=== PATIENT | male | born 1960 | race Caucasian/White ===

== ENCOUNTER 2023-09-19 16:25 | Inpatient (IN) | payer OTHER ==
[2023-09-19 16:59] VITALS: BMI 43.5
[2023-09-19] MEDS ORDERED: IBUPROFEN 400 MG TABLET (FP) PO PRN (17:44)
[2023-09-19] MEDS ORDERED: ONDANSETRON *ODT* 4 MG TABLET SL PRN (17:44)
[2023-09-19] MEDS ORDERED: BISMUTH SUBSALICYLATE 524 MG/30 ML PO PRN (17:44)
[2023-09-19] MEDS ORDERED: DICYCLOMINE HCL 10 MG CAPSULE PO PRN (17:44)
[2023-09-19] MEDS ORDERED: LOPERAMIDE HCL 2 MG CAPSULE PO PRN (17:44)
[2023-09-19] MEDS ORDERED: NALOXONE HCL 0.4 MG/ML VIAL IM PRN (17:44)
[2023-09-19] MEDS ORDERED: MAG HYDROX/AL HYDROX/SIMETH 30 ML UNIT-DOSE CUP PO PRN (17:44)
[2023-09-19] MEDS ORDERED: POLYETHYLENE GLYCOL (HEALTHYLAX) 3350 17 GM PACKET PO PRN (17:44)
[2023-09-19] MEDS ORDERED: MAGNESIUM HYDROX 2400MG/30ML ORAL SUSPENSION 30 ML CUP PO PRN (17:44)
[2023-09-19] MEDS ORDERED: NALOXONE HCL (KLOXXADO) 8 MG SPRAY NS PRN (17:44)
[2023-09-19] MEDS ORDERED: diazePAM 5 MG TABLET ONE (18:04)
[2023-09-19] MEDS: diazePAM 5 MG TABLET PO ONE (18:07)
[2023-09-19] MEDS: PRENATAL VITAMINS W/ FOLIC ACID TABLET (FP) PO SCH (18:44)
[2023-09-19] MEDS: MELATONIN 5 MG TABLETS PO SCH (22:41)
[2023-09-19] MEDS: THIAMINE 100 MG TABLET PO SCH (22:41)
[2023-09-19] MEDS: diazePAM 5 MG TABLET PO SCH (22:42)
[2023-09-20] MEDS: ACETAMINOPHEN 325 MG TABLET (FP) PO PRN (03:50)
[2023-09-20] MEDS: BENZONATATE 200 MG CAPSULE PO PRN (06:25)
[2023-09-20] MEDS: IBUPROFEN 600 MG TABLET (FP) PO PRN (08:55)
[2023-09-20] MEDS ORDERED: methaDONE HCL 10 MG TABLET PO ONE ×2 (09:01→09:43)
[2023-09-20] MEDS: NICOTINE 14 MG/24 HOURS TOPICAL PATCH TD SCH (09:45)
[2023-09-20] MEDS: methaDONE 80 MG, methaDONE 10 MG PO ONE (09:48)
[2023-09-20] MEDS: guaiFENesin 600 MG TABLET.ER (FP) PO PRN (10:36)
[2023-09-20] MEDS: methaDONE 80 MG, methaDONE 20 MG PO ONE (10:50)
[2023-09-20 12:21] LABS: MCH 25.9 pg (25.7-33.7); MCHC 32.4 g/dl (32.0-35.9); MEAN PLT VOLUME 7.6 fl (7.5-11.1); PLATELET COUNT 271 10^3/uL (134-434); RBC 4.25 M/mm3 (4.00-5.60); RDW 16.2 % (11.9-15.9); WHITE BLOOD COUNT 7.7 K/mm3 (4.0-10.0)
[2023-09-20 12:52] LABS: CHLORIDE 101 mmol/L (98-107); POTASSIUM 4.6 mmol/L (3.5-5.1); SODIUM 137 mmol/L (136-145)
[2023-09-20 13:07] LABS: ALBUMIN 2.9 g/dl (3.4-5.0); ANION GAP 5 mmol/L (4-13); BLOOD UREA NITROGEN 19.7 mg/dL (7-18); CO2 31 mmol/L (21-32); GLUCOSE,RANDOM 121 mg/dL (74-106)
[2023-09-20 13:10] LABS: CREATININE 0.9 mg/dL (0.55-1.3); SGOT/AST 15 U/L (15-37); SGPT/ALT 18 U/L (13-61)
[2023-09-20 13:12] LABS: BILIRUBIN,TOTAL 0.2 mg/dL (0.2-1)
[2023-09-20 13:13] LABS: ALK PHOS 122 U/L (45-117)
[2023-09-20 14:00] LABS: HIV INTERPRETATION NEGATIVE (NEGATIVE)
[2023-09-20] MEDS: NICOTINE POLACRILEX 2 MG GUM BUC PRN (14:11)
[2023-09-20] MEDS: hydrOXYzine PAMOATE 25 MG CAPSULE (FP) PO PRN (15:57)
[2023-09-20] MEDS: METHOCARBAMOL 500 MG TABLET PO PRN (22:22)
[2023-09-21] MEDS: BENZOCAINE/MENTHOL (CHLORASEPTIC ) LOZENGE MM PRN (04:55)
[2023-09-21] MEDS: diazePAM 5 MG TABLET PO SCH (05:08)
[2023-09-21] MEDS ORDERED: methaDONE HCL 10 MG TABLET PO SCH (06:00)
[2023-09-21] MEDS ORDERED: methaDONE 80 MG, methaDONE 10 MG PO SCH (06:00)
[2023-09-21] MEDS ORDERED: methaDONE HCL 10 MG TABLET PO ONE ×2 (06:00)
[2023-09-21] MEDS: methaDONE 80 MG, methaDONE 20 MG PO ONE (10:00)
[2023-09-21] MEDS: diazePAM 5 MG TABLET PO PRN (17:21)
[2023-09-22] MEDS: diazePAM 5 MG TABLET PO SCH (05:07)
[2023-09-22] MEDS ORDERED: methaDONE HCL 10 MG TABLET PO ONE (06:00)
[2023-09-22] MEDS ORDERED: methaDONE HCL 40 MG DISPERSABLE TABLET PO ONE (10:00)
[2023-09-22] MEDS: amLODIPine BESYLATE 5 MG TABLET (FP) PO SCH (10:38)
[2023-09-23] MEDS: diazePAM 5 MG TABLET PO ONE (05:27)
[2023-09-23] MEDS ORDERED: methaDONE HCL 10 MG TABLET PO ONE (06:00)
[2023-09-23] MEDS: methaDONE HCL 40 MG DISPERSABLE TABLET PO ONE (09:28)
[2023-09-24] MEDS ORDERED: methaDONE HCL 10 MG TABLET PO ONE ×2 (06:00)
[2023-09-24 09:36] VITALS: BP 161/68; PULSE 84; RESP 18; TEMP 97
[2023-09-24] MEDS: ALBUTEROL SO4 HFA INHALER IH PRN (13:45)
[2023-09-25] MEDS ORDERED: methaDONE HCL 10 MG TABLET PO ONE ×2 (06:00)
[2023-09-26] MEDS ORDERED: methaDONE HCL 10 MG TABLET PO ONE ×2 (06:00)
[2023-09-26] MEDS ORDERED: methaDONE HCL 40 MG DISPERSABLE TABLET PO SCH (10:00)
[2023-09-27] MEDS ORDERED: methaDONE HCL 40 MG DISPERSABLE TABLET PO SCH (06:00)
== END 2023-09-24 14:12 | disposition other institution (70) | DRG 897 ==
LOC: YASAS 16:25 → Y6N 17:48
PROVIDERS: ADMIT Allergy & Immunology; ATTEND Surgery
PROC: HZ2ZZZZ Detoxification Services for Substance Abuse Treatment (ICD-10-PCS; principal; 2023-09-19)
DX: F10.230 Alcohol dependence with withdrawal, uncomplicated (principal); F14.20 Cocaine dependence, uncomplicated; F11.20 Opioid dependence, uncomplicated; F19.282 Other psychoactive substance dependence with psychoactive substance-induced sleep disorder; Z68.41 Body mass index [BMI] 40.0-44.9, adult; F13.230 Sedative, hypnotic or anxiolytic dependence with withdrawal, uncomplicated; F17.210 Nicotine dependence, cigarettes, uncomplicated; I10 Essential (primary) hypertension; L97.519 Non-pressure chronic ulcer of other part of right foot with unspecified severity; E66.01 Morbid (severe) obesity due to excess calories; Z99.89 Dependence on other enabling machines and devices; Z62.810 Personal history of physical and sexual abuse in childhood
CPT/HCPCS: 36415; 80053; 80305; 80307; 82140; 82962; 85027; 86780; 86803; 87389; 87811; 93005; 93010

== ENCOUNTER 2023-09-24 14:19 | Inpatient (IN) | payer OTHER ==
[~2023-09-24 14:19] MED LIST: IBUPROFEN 400 MG TABLET (FP) PO PRN; LOPERAMIDE HCL 2 MG CAPSULE PO PRN; MAG HYDROX/AL HYDROX/SIMETH 30 ML UNIT-DOSE CUP PO PRN; MAGNESIUM HYDROX 2400MG/30ML ORAL SUSPENSION 30 ML CUP PO PRN; NALOXONE HCL (KLOXXADO) 8 MG SPRAY NS PRN; NALOXONE HCL 0.4 MG/ML VIAL IM PRN; NICOTINE 14 MG/24 HOURS TOPICAL PATCH TD PRN; NICOTINE 7 MG/24 HOURS TOPICAL PATCH TD PRN; POLYETHYLENE GLYCOL (HEALTHYLAX) 3350 17 GM PACKET PO PRN; hydrOXYzine PAMOATE 25 MG CAPSULE (FP) PO PRN
[2023-09-24] MEDS: ACAMPROSATE CALCIUM 333 MG TABLET.DR PO SCH (14:57)
[2023-09-24] MEDS: AMOX TR/POT CLAV 500MG/125MG TABLETS (FP) PO SCH (17:40)
[2023-09-24] MEDS: BENZOCAINE/MENTHOL (CHLORASEPTIC ) LOZENGE MM PRN (19:18)
[2023-09-24] MEDS: NICOTINE POLACRILEX 2 MG GUM BUC PRN (19:18)
[2023-09-24] MEDS: MELATONIN 5 MG TABLETS PO SCH (21:33)
[2023-09-24] MEDS: THIAMINE 100 MG TABLET PO SCH (21:33)
[2023-09-25] MEDS: BENZONATATE 200 MG CAPSULE PO PRN (01:37)
[2023-09-25] MEDS ORDERED: methaDONE HCL 10 MG TABLET PO SCH (06:00)
[2023-09-25] MEDS: INSULIN ASPART SLIDING SCALE (NOVOLOG) 1 VIAL SQ SCH (06:36)
[2023-09-25] MEDS: amLODIPine BESYLATE 5 MG TABLET (FP) PO SCH ×2 (09:02)
[2023-09-25] MEDS: PRENATAL VITAMINS W/ FOLIC ACID TABLET (FP) PO SCH (09:02)
[2023-09-25 12:50] LABS: HIV INTERPRETATION NEGATIVE (NEGATIVE)
[2023-09-25] MEDS: guaiFENesin 600 MG TABLET.ER (FP) PO PRN (13:39)
[2023-09-26] MEDS: ALBUTEROL SO4 HFA INHALER IH PRN (09:13)
[2023-09-26] MEDS ORDERED: methaDONE HCL 40 MG DISPERSABLE TABLET PO SCH (10:32)
[2023-09-26] MEDS ORDERED: P-EPHED 60MG/TRIPROLIDI 2.5MG TABLET PO PRN (10:41)
[2023-09-26] MEDS: ERYTHROMYCIN BASE 250 MG TAB PO ONE (11:32)
[2023-09-27] MEDS: ACETAMINOPHEN 325 MG TABLET (FP) PO PRN (03:36)
[2023-09-27] MEDS: methaDONE 80 MG, methaDONE 20 MG PO SCH (05:56)
[2023-09-27] MEDS: AZITHROMYCIN 250 MG TABLET PO SCH (10:12)
[2023-09-27] MEDS ORDERED: guaiFENesin 600 MG TABLET.ER (FP) PO PRN (11:01)
[2023-09-27] MEDS: IBUPROFEN 600 MG TABLET (FP) PO PRN (23:34)
[2023-09-28 10:40] VITALS: RESP 18
[2023-09-29 06:52] VITALS: BP 142/86; PULSE 73; TEMP 97.1
== END 2023-09-29 09:00 | disposition home or self-care (01) | DRG 895 ==
LOC: YASAS 14:19 → Y3W 14:21
PROVIDERS: ADMIT Allergy & Immunology; ATTEND Psychiatry & Neurology Pain Medicine
PROC: HZ42ZZZ Group Counseling for Substance Abuse Treatment, Cognitive-Behavioral (ICD-10-PCS; principal; 2023-09-24)
DX: F10.20 Alcohol dependence, uncomplicated (principal); F14.20 Cocaine dependence, uncomplicated; Z68.1 Body mass index [BMI] 19.9 or less, adult; F12.20 Cannabis dependence, uncomplicated; F17.210 Nicotine dependence, cigarettes, uncomplicated; F20.9 Schizophrenia, unspecified; I10 Essential (primary) hypertension; L97.519 Non-pressure chronic ulcer of other part of right foot with unspecified severity; E66.01 Morbid (severe) obesity due to excess calories; R06.00 Dyspnea, unspecified; R05.9 Cough, unspecified; Z99.89 Dependence on other enabling machines and devices
CPT/HCPCS: 0241U-QW; 36415; 71046-TC-FY; 82962; 86803; 87389

== ENCOUNTER 2024-02-15 00:52 | Emergency (ER) | payer OTHER ==
[2024-02-15 00:56] VITALS: BP 142/76; PULSE 69; RESP 17; TEMP 97.8; BMI 43.5
[2024-02-15] MEDS ORDERED: DALBAVANCIN HCL 500 MG VIAL (RESTRICTED TO ID ONLY) IVPB ONE (01:51)
[2024-02-15] MEDS: DALBAVANCIN HCL 1,500 MG in DEXTROSE 5%-WATER - 500 ML IVPB ONE (02:52)
[2024-02-15 04:24] LABS: HIV INTERPRETATION NEGATIVE (NEGATIVE)
== END 2024-02-15 03:51 | disposition short-term general hospital (02) ==
LOC: JER 00:52
DX: L03.115 Cellulitis of right lower limb (principal); F10.239 Alcohol dependence with withdrawal, unspecified; M79.89 Other specified soft tissue disorders
CPT/HCPCS: 36415; 86803; 87389; 93971-TC; 99285-25; J0875

== ENCOUNTER 2024-02-15 04:18 | Inpatient (IN) | payer OTHER ==
[2024-02-15 04:49] VITALS: BMI 45.8
[2024-02-15] MEDS ORDERED: BISMUTH SUBSALICYLATE 524 MG/30 ML PO PRN (05:44)
[2024-02-15] MEDS ORDERED: DICYCLOMINE HCL 10 MG CAPSULE PO PRN (05:44)
[2024-02-15] MEDS ORDERED: IBUPROFEN 400 MG TABLET (FP) PO PRN (05:44)
[2024-02-15] MEDS ORDERED: ONDANSETRON *ODT* 4 MG TABLET SL PRN (05:44)
[2024-02-15] MEDS ORDERED: POLYETHYLENE GLYCOL (HEALTHYLAX) 3350 17 GM PACKET PO PRN (05:44)
[2024-02-15] MEDS ORDERED: NALOXONE (NARCAN) HCL 4 MG/0.1 ML SPRAY NS PRN (05:44)
[2024-02-15] MEDS ORDERED: LOPERAMIDE HCL 2 MG CAPSULE PO PRN (05:44)
[2024-02-15] MEDS ORDERED: MAGNESIUM HYDROX 2400MG/30ML ORAL SUSPENSION 30 ML CUP PO PRN (05:44)
[2024-02-15] MEDS: ACETAMINOPHEN 325 MG TABLET (FP) PO PRN (07:08)
[2024-02-15] MEDS: NALOXONE (NYS OPIOID OVERDOSE PROGRAM) 4 MG/0.1 ML SPRAY NS ONE (07:49)
[2024-02-15] MEDS: methaDONE HCL 10 MG TABLET PO SCH (09:29)
[2024-02-15] MEDS: NICOTINE 21 MG/24 HOURS TOPICAL PATCH TD SCH (09:41)
[2024-02-15] MEDS: methaDONE 80 MG, methaDONE 20 MG PO SCH (09:41)
[2024-02-15] MEDS: hydrOXYzine PAMOATE 25 MG CAPSULE (FP) PO PRN (09:41)
[2024-02-15] MEDS: METHOCARBAMOL 500 MG TABLET PO PRN (09:41)
[2024-02-15] MEDS: PRENATAL VITAMINS W/ FOLIC ACID TABLET (FP) PO SCH (09:41)
[2024-02-15] MEDS: guaiFENesin 600 MG TABLET.ER (FP) PO PRN (10:33)
[2024-02-15] MEDS: HALOPERIDOL DECANOATE 100 MG/ML IM ONE (15:25)
[2024-02-15] MEDS: BENZONATATE 200 MG CAPSULE PO PRN (16:45)
[2024-02-15] MEDS: IBUPROFEN 600 MG TABLET (FP) PO PRN (19:15)
[2024-02-15] MEDS: HALOPERIDOL 5 MG TABLET PO SCH (22:07)
[2024-02-15] MEDS: THIAMINE 100 MG TABLET PO SCH (22:07)
[2024-02-15] MEDS: ATORVASTATIN CA 10 MG TABLET (FP) PO SCH (22:07)
[2024-02-15] MEDS: MELATONIN 5 MG TABLETS PO SCH (22:07)
[2024-02-16] MEDS: ALBUTEROL SO4 HFA INHALER IH PRN (01:05)
[2024-02-16] MEDS: amLODIPine BESYLATE 5 MG TABLET (FP) PO SCH (09:52)
[2024-02-16] MEDS ORDERED: amLODIPine BESYLATE 5 MG TABLET (FP) PO SCH (10:00)
[2024-02-16 10:26] LABS: HEMATOCRIT 32.9 % (35.4-49); HEMOGLOBIN 10.5 GM/dL (11.7-16.9); MCH 25.7 pg (25.7-33.7); MEAN CELL VOLUME 80.3 fl (80-96); MEAN PLT VOLUME 7.4 fl (7.5-11.1); PLATELET COUNT 219 10^3/uL (134-434); RDW 16.6 % (11.9-15.9); WHITE BLOOD COUNT 5.7 K/mm3 (4.0-10.0)
[2024-02-16 11:28] LABS: POTASSIUM 4.8 mmol/L (3.5-5.1)
[2024-02-16 11:37] LABS: ALBUMIN 3.1 g/dl (3.4-5.0)
[2024-02-16 11:38] LABS: BLOOD UREA NITROGEN 24.8 mg/dL (7-18); CALCIUM 8.8 mg/dL (8.5-10.1)
[2024-02-16 11:39] LABS: BILIRUBIN,TOTAL 0.2 mg/dL (0.2-1)
[2024-02-16 11:40] LABS: TOT PROT 7.2 g/dl (6.4-8.2)
[2024-02-16 11:41] LABS: CREATININE 0.8 mg/dL (0.55-1.3)
[2024-02-17] MEDS: MAG HYDROX/AL HYDROX/SIMETH 30 ML UNIT-DOSE CUP PO PRN (20:18)
[2024-02-18] MEDS: BENZOCAINE/MENTHOL (CHLORASEPTIC ) LOZENGE MM PRN (01:15)
[2024-02-18] MEDS: NICOTINE POLACRILEX 2 MG GUM BUC PRN (06:53)
[2024-02-18] MEDS: traZODone HCL 50 MG TABLET (FP) PO SCH (21:39)
[2024-02-19] MEDS: traZODone HCL 100 MG TABLET (FP) PO SCH (21:33)
[2024-02-21] MEDS: BACLOFEN 10 MG TABLET (FP) PO SCH (11:24)
[2024-02-21] MEDS: GABAPENTIN 300 MG CAPSULE PO SCH (13:22)
[2024-02-21] MEDS: LACTULOSE 20 GM/30 ML UDC (FOR ORAL USE ONLY) PO SCH ×2 (13:22→21:43)
[2024-02-21] MEDS ORDERED: ACAMPROSATE CALCIUM 333 MG TABLET.DR PO SCH (14:00)
[2024-02-22] MEDS: traZODone HCL 100 MG TABLET (FP) PO SCH (21:04)
[2024-02-24] MEDS ORDERED: DOCUSATE SODIUM 100 MG CAPSULE (FP) PO PRN (11:23)
[2024-02-24] MEDS ORDERED: GABAPENTIN 300 MG CAPSULE PO SCH (11:23)
[2024-02-24] MEDS: GABAPENTIN 400 MG, GABAPENTIN 100 MG PO SCH (13:34)
[2024-02-25] MEDS: SUVOREXANT 5 MG TABLET PO PRN (21:23)
[2024-02-26 06:44] VITALS: BP 154/90; PULSE 75; RESP 18; TEMP 97.6
[2024-02-26] MEDS: ALBUTEROL SO4 2.5/IPRATROPIUM 0.5 INH SOL 3 ML VIAL.NEB. NEB PRN (10:38)
[2024-02-26] MEDS ORDERED: GABAPENTIN 300 MG CAPSULE PO SCH (14:00)
== END 2024-02-26 11:55 | disposition home or self-care (01) | DRG 895 ==
LOC: YASAS 04:18 → Y3N 05:37 → UNDODISIN 02-16 13:07 → Y3NR 02-16 14:04 → Y5N 02-17 11:58
PROVIDERS: ADMIT Psychiatry & Neurology Pain Medicine; ATTEND Psychiatry & Neurology Pain Medicine
PROC: HZ42ZZZ Group Counseling for Substance Abuse Treatment, Cognitive-Behavioral (ICD-10-PCS; principal; 2024-02-15)
DX: F10.20 Alcohol dependence, uncomplicated (principal); F14.20 Cocaine dependence, uncomplicated; F19.282 Other psychoactive substance dependence with psychoactive substance-induced sleep disorder; E72.20 Disorder of urea cycle metabolism, unspecified; Z68.42 Body mass index [BMI] 45.0-49.9, adult; F12.20 Cannabis dependence, uncomplicated; F17.210 Nicotine dependence, cigarettes, uncomplicated; F20.9 Schizophrenia, unspecified; E78.5 Hyperlipidemia, unspecified; I10 Essential (primary) hypertension; G47.00 Insomnia, unspecified; M17.11 Unilateral primary osteoarthritis, right knee; R05.9 Cough, unspecified; E66.01 Morbid (severe) obesity due to excess calories; Z89.421 Acquired absence of other right toe(s)
CPT/HCPCS: 36415; 80053; 80305; 80307; 82140; 82652; 83036; 83735; 85027; 86780; 86803; 87389; 87811; 93005; 93010; 93971-TC; 94640; 99285-25; J0475; J0875

== ENCOUNTER 2024-06-03 16:53 | Inpatient (IN) | payer OTHER ==
[2024-06-03 17:48] VITALS: BMI 47.2
[2024-06-03] MEDS ORDERED: LOPERAMIDE HCL 2 MG CAPSULE PO PRN (19:00)
[2024-06-03] MEDS ORDERED: BENZOCAINE/MENTHOL (CHLORASEPTIC ) LOZENGE MM PRN (19:00)
[2024-06-03] MEDS ORDERED: POLYETHYLENE GLYCOL (HEALTHYLAX) 3350 17 GM PACKET PO PRN (19:00)
[2024-06-03] MEDS ORDERED: NALOXONE (NARCAN) HCL 4 MG/0.1 ML SPRAY NS PRN (19:00)
[2024-06-03] MEDS ORDERED: BENZONATATE 200 MG CAPSULE PO PRN (19:00)
[2024-06-03] MEDS ORDERED: ONDANSETRON *ODT* 4 MG TABLET SL PRN (19:00)
[2024-06-03] MEDS ORDERED: DICYCLOMINE HCL 10 MG CAPSULE PO PRN (19:00)
[2024-06-03] MEDS ORDERED: MAGNESIUM HYDROX 2400MG/30ML ORAL SUSPENSION 30 ML CUP PO PRN (19:00)
[2024-06-03] MEDS ORDERED: hydrOXYzine PAMOATE 25 MG CAPSULE (FP) PO PRN (19:00)
[2024-06-03] MEDS ORDERED: guaiFENesin 600 MG TABLET.ER (FP) PO PRN (19:00)
[2024-06-03] MEDS ORDERED: cloNIDine HCL 0.1 MG TABLET ONE ×2 (19:58→20:02)
[2024-06-03] MEDS: cloNIDine HCL 0.1 MG TABLET PO ONE (20:00)
[2024-06-03] MEDS: amLODIPine BESYLATE 10 MG TABLET (FP) PO SCH (22:39)
[2024-06-03] MEDS: THIAMINE 100 MG TABLET PO SCH (22:39)
[2024-06-03] MEDS: MELATONIN 5 MG TABLETS PO SCH (22:39)
[2024-06-04] MEDS: METHOCARBAMOL 500 MG TABLET PO PRN (04:02)
[2024-06-04] MEDS: IBUPROFEN 400 MG TABLET (FP) PO PRN (04:02)
[2024-06-04] MEDS: BISMUTH SUBSALICYLATE 524 MG/30 ML PO PRN (04:05)
[2024-06-04] MEDS ORDERED: ALBUTEROL SO4 HFA INHALER IH PRN (08:41)
[2024-06-04] MEDS ORDERED: diazePAM 5 MG TABLET PO PRN (08:44)
[2024-06-04] MEDS ORDERED: methaDONE HCL 10 MG TABLET PO SCH (09:15)
[2024-06-04] MEDS: PRENATAL VITAMINS W/ FOLIC ACID TABLET (FP) PO SCH (10:10)
[2024-06-04] MEDS: amLODIPine BESYLATE 5 MG TABLET (FP) PO SCH (10:10)
[2024-06-04] MEDS: methaDONE 80 MG, methaDONE 20 MG PO SCH (10:12)
[2024-06-04] MEDS: diazePAM 5 MG TABLET PO SCH (10:13)
[2024-06-04] MEDS: GABAPENTIN 300 MG CAPSULE PO SCH (14:13)
[2024-06-04] MEDS: HALOPERIDOL 5 MG TABLET PO SCH (22:13)
[2024-06-04] MEDS: ATORVASTATIN CA 10 MG TABLET (FP) PO SCH (22:14)
[2024-06-05] MEDS: MAG HYDROX/AL HYDROX/SIMETH 30 ML UNIT-DOSE CUP PO PRN (16:34)
[2024-06-05] MEDS: ACETAMINOPHEN 325 MG TABLET (FP) PO PRN (16:34)
[2024-06-05] MEDS: cloNIDine HCL 0.1 MG TABLET PO PRN (17:37)
[2024-06-06] MEDS: diazePAM 5 MG TABLET PO SCH (05:53)
[2024-06-06 09:17] LABS: HEMATOCRIT 36.4 % (35.4-49); HEMOGLOBIN 11.5 GM/dL (11.7-16.9); MCH 26.1 pg (25.7-33.7); MCHC 31.6 g/dl (32.0-35.9); MEAN CELL VOLUME 82.7 fl (80-96); MEAN PLT VOLUME 8.1 fl (7.5-11.1); PLATELET COUNT 229 10^3/uL (134-434); RBC 4.41 M/mm3 (4.00-5.60); RDW 16.2 % (11.9-15.9); WHITE BLOOD COUNT 5.1 K/mm3 (4.0-10.0)
[2024-06-06 09:18] LABS: POTASSIUM 4.5 mmol/L (3.5-5.1)
[2024-06-06 09:21] LABS: ALBUMIN 2.7 g/dl (3.4-5.0); BLOOD UREA NITROGEN 21.7 mg/dL (7-18); CALCIUM 8.8 mg/dL (8.5-10.1)
[2024-06-06 09:24] LABS: CREATININE 0.7 mg/dL (0.55-1.3)
[2024-06-06 09:25] LABS: BILIRUBIN,TOTAL 0.2 mg/dL (0.2-1); TOT PROT 6.4 g/dl (6.4-8.2)
[2024-06-06] MEDS: IBUPROFEN 600 MG TABLET (FP) PO PRN (18:54)
[2024-06-07] MEDS: diazePAM 5 MG TABLET PO SCH (05:44)
[2024-06-08] MEDS: diazePAM 5 MG TABLET PO ONE (05:24)
[2024-06-08 09:10] VITALS: BP 133/79; PULSE 105; RESP 20; TEMP 97.7
== END 2024-06-08 10:24 | disposition home or self-care (01) | DRG 897 ==
LOC: YASAS 16:53 → Y3N 20:52
PROVIDERS: ADMIT Allergy & Immunology; ATTEND Allergy & Immunology
PROC: HZ2ZZZZ Detoxification Services for Substance Abuse Treatment (ICD-10-PCS; principal; 2024-06-03)
DX: F10.230 Alcohol dependence with withdrawal, uncomplicated (principal); F11.20 Opioid dependence, uncomplicated; F14.20 Cocaine dependence, uncomplicated; F19.280 Other psychoactive substance dependence with psychoactive substance-induced anxiety disorder; F19.282 Other psychoactive substance dependence with psychoactive substance-induced sleep disorder; Z68.42 Body mass index [BMI] 45.0-49.9, adult; F13.230 Sedative, hypnotic or anxiolytic dependence with withdrawal, uncomplicated; F17.210 Nicotine dependence, cigarettes, uncomplicated; E78.5 Hyperlipidemia, unspecified; I10 Essential (primary) hypertension; J20.9 Acute bronchitis, unspecified; E66.01 Morbid (severe) obesity due to excess calories; Z62.810 Personal history of physical and sexual abuse in childhood; Z91.410 Personal history of adult physical and sexual abuse; Z63.0 Problems in relationship with spouse or partner; Z63.8 Other specified problems related to primary support group
CPT/HCPCS: 36415; 80053; 80305; 80307; 85027; 86780

== ENCOUNTER 2024-06-22 12:55 | Inpatient (IN) | payer OTHER ==
[2024-06-22] MEDS ORDERED: BENZOCAINE/MENTHOL (CHLORASEPTIC ) LOZENGE MM PRN (13:44)
[2024-06-22] MEDS ORDERED: LOPERAMIDE HCL 2 MG CAPSULE PO PRN (13:44)
[2024-06-22] MEDS ORDERED: MAGNESIUM HYDROX 2400MG/30ML ORAL SUSPENSION 30 ML CUP PO PRN (13:44)
[2024-06-22] MEDS ORDERED: IBUPROFEN 400 MG TABLET (FP) PO PRN (13:44)
[2024-06-22] MEDS ORDERED: BENZONATATE 200 MG CAPSULE PO PRN (13:44)
[2024-06-22] MEDS ORDERED: guaiFENesin 600 MG TABLET.ER (FP) PO PRN (13:44)
[2024-06-22] MEDS ORDERED: NALOXONE (NARCAN) HCL 4 MG/0.1 ML SPRAY NS PRN (13:44)
[2024-06-22] MEDS ORDERED: POLYETHYLENE GLYCOL (HEALTHYLAX) 3350 17 GM PACKET PO PRN (13:44)
[2024-06-22 14:10] VITALS: BMI 35.2
[2024-06-22] MEDS ORDERED: GABAPENTIN 100 MG CAPSULE ONE (18:03)
[2024-06-22] MEDS ORDERED: amLODIPine BESYLATE 5 MG TABLET (FP) ONE (18:03)
[2024-06-22] MEDS: GABAPENTIN 300 MG CAPSULE PO SCH (18:12)
[2024-06-22] MEDS: amLODIPine BESYLATE 5 MG TABLET (FP) PO SCH (18:12)
[2024-06-22] MEDS: BACLOFEN 10 MG TABLET (FP) PO SCH (21:14)
[2024-06-22] MEDS: ATORVASTATIN CA 10 MG TABLET (FP) PO SCH (21:14)
[2024-06-22] MEDS: THIAMINE 100 MG TABLET PO SCH (21:14)
[2024-06-22] MEDS: MELATONIN 5 MG TABLETS PO SCH (21:14)
[2024-06-22] MEDS: NICOTINE POLACRILEX 2 MG GUM BUC PRN (23:41)
[2024-06-23] MEDS: methaDONE 80 MG, methaDONE 20 MG PO SCH (05:23)
[2024-06-23] MEDS ORDERED: methaDONE HCL 10 MG TABLET PO SCH (06:00)
[2024-06-23] MEDS ORDERED: methaDONE HCL 40 MG DISPERSABLE TABLET PO SCH (10:00)
[2024-06-23] MEDS: PRENATAL VITAMINS W/ FOLIC ACID TABLET (FP) PO SCH (10:01)
[2024-06-23] MEDS: NICOTINE 14 MG/24 HOURS TOPICAL PATCH TD SCH (10:01)
[2024-06-23] MEDS ORDERED: guaiFENesin 600 MG TABLET.ER (FP) PO PRN (10:44)
[2024-06-23] MEDS ORDERED: OXYMETAZOLINE 0.05% NASAL SOLUTION 15 ML BOTTLE NS PRN (10:44)
[2024-06-23] MEDS ORDERED: BENZONATATE 200 MG CAPSULE PO PRN (10:44)
[2024-06-23] MEDS: ACETAMINOPHEN 325 MG TABLET (FP) PO PRN (11:26)
[2024-06-24] MEDS: MAG HYDROX/AL HYDROX/SIMETH 30 ML UNIT-DOSE CUP PO PRN (12:33)
[2024-06-24] MEDS: LOSARTAN POTASSIUM 25 MG TABLET PO ONE (16:00)
[2024-06-24] MEDS: ALBUTEROL SO4 2.5/IPRATROPIUM 0.5 INH SOL 3 ML VIAL.NEB. NEB SCH (20:55)
[2024-06-25 11:09] LABS: BASO % 0.3 % (0-2.0); HEMATOCRIT 39.2 % (35.4-49); HEMOGLOBIN 12.4 GM/dL (11.7-16.9); LYMPH % 28.5 % (8-40); MCH 25.9 pg (25.7-33.7); MCHC 31.7 g/dl (32.0-35.9); MEAN CELL VOLUME 81.8 fl (80-96); MEAN PLT VOLUME 7.8 fl (7.5-11.1); MONO % 5.8 % (3.8-10.2); NEUT % 62.4 % (42.8-82.8); PLATELET COUNT 290 10^3/uL (134-434); RBC 4.79 M/mm3 (4.00-5.60); RDW 16.8 % (11.9-15.9); WHITE BLOOD COUNT 6.9 K/mm3 (4.0-10.0)
[2024-06-25 11:18] LABS: POTASSIUM 4.4 mmol/L (3.5-5.1)
[2024-06-25 11:24] LABS: ALBUMIN 3.1 g/dl (3.4-5.0)
[2024-06-25 11:25] LABS: BLOOD UREA NITROGEN 16.7 mg/dL (7-18)
[2024-06-25 11:28] LABS: CREATININE 0.8 mg/dL (0.55-1.3)
[2024-06-25 11:29] LABS: BILIRUBIN,TOTAL 0.4 mg/dL (0.2-1); TOT PROT 7.2 g/dl (6.4-8.2)
[2024-06-25] MEDS: IBUPROFEN 600 MG TABLET (FP) PO PRN (16:21)
[2024-06-26] MEDS: ALBUTEROL SO4 HFA INHALER IH PRN (08:43)
[2024-06-29] MEDS: hydrOXYzine PAMOATE 25 MG CAPSULE (FP) PO PRN (10:49)
[2024-06-29] MEDS: predniSONE 20 MG TABLET (UD) PO SCH (12:06)
[2024-06-30 05:14] VITALS: TEMP 96.8
[2024-06-30] MEDS: amLODIPine BESYLATE 10 MG TABLET (FP) PO SCH (09:16)
[2024-07-01 05:08] VITALS: RESP 18
[2024-07-01 14:11] VITALS: BP 147/74; PULSE 93
== END 2024-07-01 16:20 | disposition home or self-care (01) | DRG 895 ==
LOC: YASAS 12:55 → Y3W 17:38
PROVIDERS: ADMIT Psychiatry & Neurology Pain Medicine; ATTEND Psychiatry & Neurology Pain Medicine
PROC: HZ42ZZZ Group Counseling for Substance Abuse Treatment, Cognitive-Behavioral (ICD-10-PCS; principal; 2024-06-22)
DX: F11.20 Opioid dependence, uncomplicated (principal); F14.20 Cocaine dependence, uncomplicated; F19.282 Other psychoactive substance dependence with psychoactive substance-induced sleep disorder; F19.280 Other psychoactive substance dependence with psychoactive substance-induced anxiety disorder; F12.20 Cannabis dependence, uncomplicated; F17.210 Nicotine dependence, cigarettes, uncomplicated; F20.9 Schizophrenia, unspecified; E78.5 Hyperlipidemia, unspecified; I10 Essential (primary) hypertension; G47.30 Sleep apnea, unspecified; Z62.810 Personal history of physical and sexual abuse in childhood; Z91.410 Personal history of adult physical and sexual abuse; Z87.2 Personal history of diseases of the skin and subcutaneous tissue; Z99.89 Dependence on other enabling machines and devices
CPT/HCPCS: 0241U-QW; 36415; 80053; 80305; 85025; 94640; J0475